=== PATIENT | male | born 1980 ===

== ENCOUNTER 2021-08-03 12:01 | Emergency (ER) | payer OTHER ==
[~2021-08-03] VITALS: Ht 165.1 cm; Wt 73.5 kg
== END 2021-08-03 14:00 | disposition home or self-care (01) ==
LOC: ER 12:01
DX: S81.821A Laceration with foreign body, right lower leg, initial encounter (principal); W25.XXXA Contact with sharp glass, initial encounter; Y93.9 Activity, unspecified; Y92.9 Unspecified place or not applicable